=== PATIENT | female | born 1975 | race Asian ===

== ENCOUNTER 2021-01-15 14:23 | Emergency (ER) | payer OTHER ==
[~2021-01-15] VITALS: Ht 160 cm; Wt 63.0 kg
[2021-01-15 14:25] VITALS: BP 124/69
[2021-01-15] MEDS ORDERED: KETOROLAC 15 MG/ML VIAL. IM ONE (15:15)
[2021-01-15] MEDS ORDERED: CYCLOBENZAPRINE 10 MG TABLET. PO ONE (15:15)
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
[2021-01-15] MEDS ORDERED: CYCL-331 PO (16:37)
== END 2021-01-15 16:46 | disposition home or self-care (01) ==
LOC: ER 14:23
DX: R51.9 Headache, unspecified (principal); M54.2 Cervicalgia; M54.9 Dorsalgia, unspecified; V89.2XXA Person injured in unspecified motor-vehicle accident, traffic, initial encounter; Y93.89 Activity, other specified; Y92.89 Other specified places as the place of occurrence of the external cause; Y99.8 Other external cause status
CPT/HCPCS: 70450; 72125; 96372; 99285; J1885